=== PATIENT | female | born 1990 | race Caucasian/White ===

== ENCOUNTER 2017-01-09 19:08 | Inpatient (IN) | payer MEDICAID ==
[~2017-01-09] VITALS: Ht 152.4 cm; Wt 77.8 kg
[2017-01-09 21:05] LABS: Basophils # (auto) 0 uL; Basophils % (auto) 0.1 % (0.0-2.0); Eosinophils # (auto) 0 uL; Eosinophils % (auto) 0.1 % (0.0-7.0); Hematocrit 42.4 % (36.0-46.0); Hemoglobin 14.5 g/dL (12.2-16.2); Lymphocytes # (auto) 0.7 uL; Lymphocytes % (auto) 3.4 % (10.0-50.0); Mean Corpuscular Hemoglobin 33.1 pg (28.0-32.0); Mean Corpuscular Hgb Conc. 34.2 g/dL (32.0-36.0); Mean Corpuscular Volume 96.8 fL (80.0-100.0); Mean Platelet Volume 8.9 fL (6.9-10.8); Monocytes # (auto) 1.2 uL; Monocytes % (auto) 5.7 % (0.0-12.0); Neutrophils # (auto) 18.4 uL; Neutrophils % (auto) 90.7 % (37.0-80.0); Platelet Count (auto) 172 10^3/uL (140-450); Red Cell Distribution Width 13.4 % (11.8-14.3); White Blood Cell 20.3 10^3/uL (4.4-10.8)
[2017-01-09 21:24] LABS: Albumin 3.8 g/dL (3.4-5.0); BUN/Creatinine Ratio 11.7; Bilirubin, Total 0.7 mg/dL (0.2-1.0); Calcium 9.1 mg/dL (8.5-10.1); Potassium 3.5 mmol/L (3.5-5.1); Total Protein 7.7 g/dL (6.4-8.2)
[2017-01-09 21:40] LABS: Urine Bilirubin Negative (Negative); Urine Blood 2+ /uL (Negative); Urine Color Yellow (Yellow); Urine Glucose Normal (Normal); Urine Ketone 3+ (Negative); Urine Nitrite Negative (Negative); Urine RBC 18 /hpf (0 - 4); Urine Squamous Epithelial Cell FEW /hpf (<5); Urine Urobilinogen Normal (Negative); Urine pH 5.5 (5.0-8.0)
[2017-01-10] MEDS ORDERED: KETOROLAC TROMETH 30 MG/ML 1ML VIAL IV ONE (01:00)
[2017-01-10] MEDS ORDERED: ONDANSETRON HCL 4 MG/2 ML VIAL IV ONE (01:00)
[2017-01-10] MEDS ORDERED: CEFTRIAXONE SODIUM 2 GM in D5W 5% 50 ML IV ONE (01:00)
[2017-01-10] MEDS ORDERED: HYDROmorphone HCL 2 MG/ML VL IV ONE (01:00)
[2017-01-10] MEDS ORDERED: SODIUM CHLORIDE 0.9% 2,000 ML IV ONE ×2 (01:00→09:45)
[2017-01-10] MEDS ORDERED: cefTRIAXone 1GM/50ML D5W 50 ML IV ONE (01:21)
[2017-01-10] MEDS ORDERED: cefTRIAXone SOD 1,000 MG VL ONE (01:27)
[2017-01-10 07:08] LABS: Lactic Acid w/Reflex 2.3 mmol/L (0.4-2.0)
[2017-01-10] MEDS ORDERED: SODIUM CHLORIDE 0.9% 1,000 ML IV SCH (07:09)
[2017-01-10 07:39] LABS: REFLEX LACTIC ACID YES OR NO YES
[2017-01-10] MEDS: ONDANSETRON HCL 4 MG/2 ML VIAL IV PRN ×4 (07:45→20:36)
[2017-01-10] MEDS: MORPHINE SULF INJ 2 MG/ML SYRINGE 1ML IV PRN ×4 (07:45→20:35)
[2017-01-10] MEDS ORDERED: LEVOFLOXACIN 500MG 100 ML IV SCH (08:00)
[2017-01-10] MEDS ORDERED: PIPERACILLIN-TAZOB 3.375GM 50 ML IV ONE (09:45)
[2017-01-10] MEDS: PANTOPRAZOLE 40 MG/10 ML VIAL IV SCH (10:17)
[2017-01-10] MEDS: SODIUM CHLORIDE 0.9% 1,000 ML IV SCH ×2 (10:17→16:05)
[2017-01-10] MEDS: HYDROcodone-ACET 5/325MG TAB PO PRN (11:13)
[2017-01-10 13:48] VITALS: BP 99/55
[2017-01-10 14:00] VITALS: BP 107/58
[2017-01-10 14:43] VITALS: BP 107/59
[2017-01-10] MEDS ORDERED: LORazepam 0.5 MG TAB PO PRN (14:45)
[2017-01-10] MEDS: PIPERACILLIN-TAZOB 3.375GM 50 ML IV SCH ×2 (16:02→21:16)
[2017-01-10 17:00] VITALS: BP 107/63
[2017-01-10 20:00] VITALS: BP 108/65
[2017-01-10] MEDS: ACETAMINOPHEN 500 MG TAB PO PRN (21:16)
[2017-01-10 22:00] VITALS: BP 108/65
[2017-01-10] MEDS: TEMAZEPAM 15 MG CAP PO PRN (22:40)
[2017-01-11] VITALS (8 sets, daily range): BP systolic 103–125; BP diastolic 58–72
[2017-01-11] MEDS: MORPHINE SULF INJ 2 MG/ML SYRINGE 1ML IV PRN ×4 (01:38→22:47)
[2017-01-11] MEDS: ONDANSETRON HCL 4 MG/2 ML VIAL IV PRN ×4 (01:38→22:47)
[2017-01-11] MEDS: SODIUM CHLORIDE 0.9% 1,000 ML IV SCH ×4 (01:45→16:48)
[2017-01-11] MEDS ORDERED: cefTRIAXone 1GM/50ML D5W 50 ML IV SCH (02:00)
[2017-01-11] MEDS: ACETAMINOPHEN 500 MG TAB PO PRN ×3 (03:49→22:59)
[2017-01-11] MEDS: PIPERACILLIN-TAZOB 3.375GM 50 ML IV SCH ×4 (03:49→21:34)
[2017-01-11 04:44] LABS: Basophils # (auto) 0 uL; Basophils % (auto) 0.2 % (0.0-2.0); Eosinophils # (auto) 0 uL; Eosinophils % (auto) 0.1 % (0.0-7.0); Hematocrit 34.7 % (36.0-46.0); Hemoglobin 11.6 g/dL (12.2-16.2); Lymphocytes # (auto) 0.6 uL; Lymphocytes % (auto) 4.6 % (10.0-50.0); Mean Corpuscular Hemoglobin 32.4 pg (28.0-32.0); Mean Corpuscular Hgb Conc. 33.5 g/dL (32.0-36.0); Mean Corpuscular Volume 96.8 fL (80.0-100.0); Mean Platelet Volume 9.4 fL (6.9-10.8); Monocytes # (auto) 0.9 uL; Monocytes % (auto) 7.4 % (0.0-12.0); Neutrophils # (auto) 10.9 uL; Neutrophils % (auto) 87.7 % (37.0-80.0); Platelet Count (auto) 124 10^3/uL (140-450); Red Cell Distribution Width 13.7 % (11.8-14.3); White Blood Cell 12.4 10^3/uL (4.4-10.8)
[2017-01-11 05:10] LABS: Albumin 2.5 g/dL (3.4-5.0); BUN/Creatinine Ratio 7.1; Bilirubin, Total 0.5 mg/dL (0.2-1.0); Calcium 7.8 mg/dL (8.5-10.1); Potassium 3.7 mmol/L (3.5-5.1); Total Protein 6.2 g/dL (6.4-8.2)
[2017-01-11] MEDS ORDERED: FUROSEMIDE 20 MG TAB PO ONE (09:30)
[2017-01-11] MEDS ORDERED: TAMSULOSIN HYDROCHLORIDE 0.4 MG CAP PO ONE (09:30)
[2017-01-11] MEDS ORDERED: KETOROLAC TROMETH 30 MG/ML 1ML VIAL IV ONE (10:00)
[2017-01-11] MEDS: PANTOPRAZOLE 40 MG/10 ML VIAL IV SCH (10:35)
[2017-01-11] MEDS: PROMETHAZINE HCL 25 MG/ML 1ML IV PRN (16:25)
[2017-01-11] MEDS: TAMSULOSIN HYDROCHLORIDE 0.4 MG CAP PO SCH (18:33)
[2017-01-11] MEDS: FUROSEMIDE 20 MG TAB PO SCH (21:34)
[2017-01-11] MEDS: TEMAZEPAM 15 MG CAP PO PRN (21:34)
[2017-01-12] MEDS: SODIUM CHLORIDE 0.9% 1,000 ML IV SCH ×4 (01:30→21:45)
[2017-01-12] MEDS: PIPERACILLIN-TAZOB 3.375GM 50 ML IV SCH ×2 (03:36→09:27)
[2017-01-12] MEDS: HYDROcodone-ACET 5/325MG TAB PO PRN ×2 (03:47→10:16)
[2017-01-12 05:00] VITALS: BP 105/68
[2017-01-12] MEDS: ACETAMINOPHEN 500 MG TAB PO PRN ×3 (06:05→22:37)
[2017-01-12 08:51] VITALS: BP 114/65
[2017-01-12] MEDS: PANTOPRAZOLE 40 MG/10 ML VIAL IV SCH (09:27)
[2017-01-12] MEDS ORDERED: INFLUENZA QUAD 2017-2018 0.5 ML SYRG IM ONE (10:00)
[2017-01-12] MEDS ORDERED: cefTRIAXone 1GM/50ML D5W 50 ML IV ONE (10:15)
[2017-01-12] MEDS: ONDANSETRON HCL 4 MG/2 ML VIAL IV PRN ×2 (11:00→21:27)
[2017-01-12 12:09] VITALS: BP 108/68
[2017-01-12] MEDS: LORATADINE 10 MG TAB PO SCH (13:21)
[2017-01-12] MEDS: PROMETHAZINE HCL 25 MG/ML 1ML IV PRN ×2 (15:32→19:00)
[2017-01-12 16:37] VITALS: BP 121/77
[2017-01-12] MEDS: TAMSULOSIN HYDROCHLORIDE 0.4 MG CAP PO SCH (18:16)
[2017-01-12] MEDS: FUROSEMIDE 20 MG TAB PO SCH (21:18)
[2017-01-12] MEDS: TEMAZEPAM 15 MG CAP PO PRN (21:19)
[2017-01-12 22:00] VITALS: BP 106/69
[2017-01-13] MEDS: SODIUM CHLORIDE 0.9% 1,000 ML IV SCH (00:18)
[2017-01-13] MEDS: HYDROcodone-ACET 5/325MG TAB PO PRN ×2 (04:04→10:33)
[2017-01-13 05:00] VITALS: BP 108/75
[2017-01-13] MEDS: ONDANSETRON HCL 4 MG/2 ML VIAL IV PRN (05:03)
[2017-01-13] MEDS: ACETAMINOPHEN 500 MG TAB PO PRN (08:43)
[2017-01-13 09:00] VITALS: BP 106/70
[2017-01-13] MEDS ORDERED: cefTRIAXone 1GM/50ML D5W 50 ML IV SCH (09:00)
[2017-01-13] MEDS: LORATADINE 10 MG TAB PO SCH (10:32)
[2017-01-13] MEDS: PANTOPRAZOLE 40 MG/10 ML VIAL IV SCH (10:32)
[2017-01-13 13:56] VITALS: BP 112/74
== END 2017-01-13 14:25 | disposition home or self-care (01) | DRG 720 ==
LOC: ER 19:18 → OVERFLOW 19:19 → EAST 01-10 14:04 → TELE-EAST 01-11 02:24
PROVIDERS: ADMIT Family Medicine; ATTEND Internal Medicine
PROC: 3E0234Z Introduction of Serum, Toxoid and Vaccine into Muscle, Percutaneous Approach (ICD-10-PCS; principal; 2017-01-12)
DX: A41.9 Sepsis, unspecified organism (principal); E44.0 Moderate protein-calorie malnutrition; N12 Tubulo-interstitial nephritis, not specified as acute or chronic; E88.09 Other disorders of plasma-protein metabolism, not elsewhere classified; E86.0 Dehydration; D63.8 Anemia in other chronic diseases classified elsewhere; B96.20 Unspecified Escherichia coli [E. coli] as the cause of diseases classified elsewhere; N13.2 Hydronephrosis with renal and ureteral calculous obstruction; Z68.33 Body mass index [BMI] 33.0-33.9, adult; Z83.3 Family history of diabetes mellitus; Z82.49 Family history of ischemic heart disease and other diseases of the circulatory system; Z80.6 Family history of leukemia; Z23 Encounter for immunization
CPT/HCPCS: 36415; 51702; 71020; 74176; 76775; 80053; 81001; 81025; 82150; 83605; 83690; 85025; 87040; 87086; 87088; 87186; 93005; 96365; 96375; C9113; J0696; J1885; J1956; J2405; J2543; J7060